=== PATIENT | female | born 1955 | race Caucasian/White ===

== ENCOUNTER → 2016-08-19 | Outpatient (CLI) | payer OTHER | LOC: BMCIMAGING 07:55 | PROVIDERS: ATTEND Family Medicine | DX: Z12.31 Encounter for screening mammogram for malignant neoplasm of breast (principal); Z90.11 Acquired absence of right breast and nipple | CPT/HCPCS: G0202; G0202-52 ==

== ENCOUNTER → 2016-10-11 | Outpatient (CLI) | payer OTHER | LOC: FIMAGING 09:42 | PROVIDERS: ATTEND Family Medicine | DX: Z13.820 Encounter for screening for osteoporosis (principal); M85.80 Other specified disorders of bone density and structure, unspecified site ==